=== PATIENT | female | born 1975 | race Caucasian/White ===

== ENCOUNTER 2017-09-24 20:15 | Emergency (ER) | payer SELFPAY ==
[~2017-09-24] VITALS: Ht 167.6 cm; Wt 89.6 kg
[~2017-09-24 20:15] MED LIST: VIC PO
[2017-09-24 21:08] VITALS: Ht 167.6 cm; Wt 89.6 kg
[2017-09-24] MEDS ORDERED: FLUT9.9S NASAL (21:27)
[2017-09-24] MEDS ORDERED: ACET500C5 PO (21:27)
[2017-09-24] MEDS ORDERED: ONDA4TAB14 PO (21:27)
[2017-09-24] MEDS ORDERED: BENZ100C70 PO (21:27)
[2017-09-24] MEDS ORDERED: CETI10CA PO (21:27)
[2017-09-24] MEDS ORDERED: DICY10CA60 PO (21:27)
[2017-09-24] MEDS ORDERED: IBUP-1542 PO (21:27)
--- NOTE | 2017-09-24 22:09 | ERD ---
ER Documentation Chief Complaint Chief Complaint cough,runny nose, bodyache x2days. n/v/d today. Seen at [place] dx w/flu HPI 42-year-old female presents here to emergency department for complaints of cough and congestion bodyaches nausea vomiting and diarrhea that started 2 days ago, worse today. Patient was seen at another hospital, was diagnosed to have influenza or flu, patient states that she was not given any medications to help her symptoms. Patient is here today since she is wanting medications. Patient denies any new symptoms. Patient denies any blood in the stool or black stool. Patient denies any blood in the vomit. Patient does not have any shortness of breath or wheezing. Patient does not have any sore throat or ear pain. Patient denies any sick contacts ROS All systems reviewed and are negative except as per history of present illness. Medications Home Meds Active Scripts Ondansetron (Ondansetron Odt) 4 Mg Tab.rapdis, 4 MG PO Q6H Y for NAUSEA AND/OR VOMITING, #20 TAB Prov:MADDIE DANIELS NP 09/24/17 Dicyclomine Hcl* (Bentyl*) 10 Mg Capsule, 20 MG PO QID, #30 CAP Prov:MADDIE DANIELS NP 09/24/17 Cetirizine Hcl* (Zyrtec*) 10 Mg Capsule, 10 MG PO DAILY, #30 TAB.CHEW Prov:MADDIE DANIELS NP 09/24/17 Acetaminophen* (Tylophen*) 500 Mg Capsule, 1 CAP PO Q6H Y for PAIN AND OR ELEVATED TEMP, #20 CAP Prov:MADDIE DANIELS NP 09/24/17 Ibuprofen* (Motrin*) 600 Mg Tab, 600 MG PO Q6H Y for PAIN AND OR ELEVATED TEMP, #30 TAB Prov:MADDIE DANIELS NP 09/24/17 Fluticasone Propionate (Flonase Allergy Relief) 9.9 Ml [place].susp, 1 SPRAY NASAL BID, #1 BOTTLE TO EACH NOSTRIL Prov:MADDIE DANIELS NP 09/24/17 Benzonatate* (Tessalon Perle*) 100 Mg Capsule, 100 MG PO Q8H Y for COUGH, #30 CAP Prov:MADDIE DANIELS MAShane AvalosAndrea [employer] 09/24/17 Reported Medications Acetaminophen/Hydrocodone (Vicodin) 1 Tab Tab, 1 TAB PO DAILY 04/07/12 Allergies Allergies: Coded Allergies: No Known Allergy (Unverified , 09/24/17) PMhx/Soc History of Surgery: Yes (MASTECTOMY, BACK) Anesthesia Reaction: No Hx Neurological Disorder: No Hx Respiratory Disorders: No Hx Cardiac Disorders: No Hx Psychiatric Problems: No Hx Miscellaneous Medical Probl: Yes (BREAST CA) Hx Alcohol Use: No Hx Substance Use: No Hx Tobacco Use: No FmHx Family History: No coronary disease, No diabetes, No other Physical Exam Vitals Vital Signs Date Time Temp Pulse Resp B/P Pulse Ox O2 Delivery O2 Flow Rate FiO2 09/24/17 21:08 99.0 90 20 126/70 97 Physical Exam GENERAL: The patient is well developed and appropriate for usual state of health, in no apparent distress. CHEST: Clear to auscultation bilaterally. There are no rales, wheezes or rhonchi. HEART: Regular rate and rhythm. No murmurs, clicks, rubs or gallops. No S3 or S4. ABDOMEN: Soft, nontender and nondistended. Hyperactive bowel sounds. No rebound or guarding. No gross peritonitis. No gross organomegaly or masses. No Childs sign or McBurney point tenderness. BACK: No midline or flank tenderness. EXTREMITIES: Equal pulses bilaterally. There is no peripheral clubbing, cyanosis or edema. No focal swelling or erythema. Full range of motion. Grossly neurovascularly intact. NEURO: Alert and oriented. Cranial nerves 2-12 intact. Motor strength in all 4 extremities with 5/5 strength. Sensation grossly intact. Normal speech and gait. SKIN: There is no apparent rash or petechia. The skin is warm and dry. HEMATOLOGIC AND LYMPHATIC: There is no evidence of excessive bruising or lymphedema. No gross cervical, axillary, or inguinal lymphadenopathy. Procedures/MDM Medical Decision Making: Patient symptoms are most likely consistent with viral syndrome. There is low suspicion for Pneumonia at this time since patient s lungs sounds are clear, patient O2 saturation is normal and patient doesnt show any respiratory distress. Patients chest xray doesnt show infiltrates or any other cardiopulmonary emergencies at this time. There is low suspicion for other cardiopulmonary emergencies at this time such as CHF, Pulmonary Embolism, Pneumothorax, or any other cardiopulmonary emergencies at this time. There is low suspicion for sepsis. Patient appears well and is hemodynamically stable. Fever is controlled with medicines. Disposition: Home. Condition: Stable Prescriptions: Zyrtec Tylenol ibuprofen Flonase Tessalon Perles Bentyl Zofran Instructions: Patient is advised to take medications as prescribed. Patient is advised to rest. Patient advised to increase fluid intake, do humidifier at home and if possible, do salt water gargles. Patient is advised that if symptoms are worse, shortness of breath, uncontrolled fever, stridor, vomiting, worst signs and symptoms to return to emergency department immediately. Otherwise, patient is advised to follow up with primary doctor in 5-7 days. Disclaimer: Inadvertent spelling and grammatical errors are likely due to EHR/ dictation software use and do not reflect on the overall quality of patient care. Also, please note that the electronic time recorded on this note does not necessarily reflect the actual time of the patient encounter. Departure Diagnosis: Primary Impression: Viral syndrome Condition: Stable Patient Instructions: Viral Syndrome (Adult) MADDIE DANIELS NP Sep 24, 2017 22:09
== END 2017-09-24 21:29 | disposition home or self-care (01) ==
LOC: E/R 20:15
DX: B34.9 Viral infection, unspecified (principal); Z85.3 Personal history of malignant neoplasm of breast
CPT/HCPCS: 99284